=== PATIENT | male | born 1950 | race Caucasian/White ===

== ENCOUNTER 2020-08-08 09:59 | Emergency (ER) | payer OTHER, MEDICARE ==
[~2020-08-08] VITALS: Ht 172.7 cm; Wt 81.8 kg
[2020-08-08 10:42] LABS: BASOPHILS % (AUTO) 0.6 % (0-1); EOSINOPHILS # (AUTO) 0.1 X10'3 (0-0.9); EOSINOPHILS % (AUTO) 0.9 % (0-6); HEMATOCRIT 43.3 % (42.0-52.0); HEMOGLOBIN 14.7 g/dl (14.0-17.9); LYMPHOCYTES # (AUTO) 1.1 X10'3 (1.1-4.8); LYMPHOCYTES % (AUTO) 14.8 % (21-51); MEAN CORPUSCULAR HEMOGLOBIN 32.6 PG (27.0-31.0); MEAN PLATELET VOLUME 8.4 FL (7.4-10.4); MONOCYTES # (AUTO) 0.4 X10'3 (0-0.9); NEUTROPHILS # (AUTO) 5.7 X10'3 (1.8-7.7); NEUTROPHILS % (AUTO) 78.7 % (42-75); PLATELET COUNT 179 X10'3 (140-440); RED BLOOD COUNT 4.51 X10'6 (4.70-6.10); RED CELL DISTRIBUTION WIDTH 12.9 % (11.5-14.5); WHITE BLOOD COUNT 7.2 X10'3 (4.5-11.0)
[2020-08-08 10:56] LABS: ALANINE AMINOTRANSFERASE 39 U/L (12-78); ALBUMIN 3.8 G/DL (3.4-5.0); ALBUMIN/GLOBULIN RATIO 0.9 (1.1-1.5); ALKALINE PHOSPHATASE 68 IU/L (46-116); ANION GAP 9 (8-16); BILIRUBIN,TOTAL 0.5 MG/DL (0.1-1.0); BLOOD UREA NITROGEN 25 MG/DL (7-18); BUN/CREATININE RATIO 17.7 (5.4-32.0); CHLORIDE 103 MMOL/L (99-107); CREATININE 1.41 MG/DL (0.60-1.10); GLUCOSE 204 MG/DL (70-104); POTASSIUM 4.6 MMOL/L (3.5-5.1); SODIUM 138 MMOL/L (135-145); TOTAL CARBON DIOXIDE 26.5 MMOL/L (24-32); eGFR 49 ML/MIN
[2020-08-08 11:09] LABS: ASPARTATE AMINO TRANSFERASE 33 U/L (10-37)
[2020-08-08] MEDS ORDERED: meclizine 12.5mg tablet PO ONE (11:30)
[2020-08-08] MEDS ORDERED: MECL-159 PO (11:45)
[2020-08-08 12:34] VITALS: BP 140/73
== END 2020-08-08 12:37 | disposition home or self-care (01) ==
LOC: ER 10:00
DX: R42 Dizziness and giddiness (principal); R11.0 Nausea; J20.9 Acute bronchitis, unspecified; Z79.899 Other long term (current) drug therapy
CPT/HCPCS: 36415; 70450; 71045; 80053; 83880; 84484; 85025; 93005; 99285; J8597

== ENCOUNTER 2024-12-25 22:43 | Emergency (ER) | payer OTHER, MEDICARE ==
[~2024-12-25] VITALS: Ht 170.2 cm; Wt 60.2 kg
[~2024-12-25 22:43] MED LIST: MECL-302 PO
[2024-12-25 22:58] VITALS: BP 139/87; PULSE 66; RESP 15; TEMP 98.6; O2SAT 99
[2024-12-25] MEDS: fluorescein sod 1mg ophthalmic strip EACHEYE ONE (23:15)
[2024-12-25] MEDS: proparacaine 0.5% ophthalmic drops 15ml EACHEYE ONE (23:15)
--- NOTE | 2024-12-25 23:55 | Physician Documentation ---
History of Present Illness ~ Chief Complaint: Eye Pain Stated Complaint: EYE PAIN Time Seen by MD: 23:53 HPI Patient is a 74-year-old gentleman that presents to the emergency department for evaluation of right eye pain. He reports that he was in the shower earlier this evening when he squatted conditioner in his eye accidentally. Patient reports using the stream from the shower head to rinse his eye out. Patient reports that since that time his eye has been very irritated and difficult to open. Medication Reconciliation Allergies: Coded Allergies: No Known Allergies (Unverified , 08/08/20) Scheduled Meclizine HCl (Meclizine HCl), 1 TAB PO QID Past Medical History Past Medical History: Diabetes Past Surgical History: noncontributory Alcohol Use: None Lives In: Home Review of Systems ROS As stated above in the HPI, otherwise all systems are reviewed and negative. Physical Exam Vital Signs: Temperature: 98.6, Source: Temporal, Heart Rate: 66, Respiratory Rate: 15, BP: 139/87, Pulse Oximetry: 99, Weight: 60.200 Physical Exam VITALS: Reviewed and as above. GENERAL: Alert, no apparent distress. HEENT: Normocephalic, atraumatic, PERRL, EOMI, dry mucosa, no erythema, pain with exam, Wood's lamp evaluation with fluorescein strip shows probable corneal abrasion. RESPIRATORY: Lungs clear, normal breath sounds, no respiratory distress. CHEST: No accessory muscle use, no retractions CV: Regular rate, rhythm, no edema, no murmur, No: JVD GI: Soft, non-tender, bowels sounds present, no rebound, guarding, or rigidity BACK: No CVA tenderness, or swelling MUSCULOSKELETAL No deformities, no edema SKIN: Warm and dry, no rash NEURO: Oriented x4, No motor or sensory deficit PSYCH: Normal mood and affect, no agitation Progress Results/Orders Results/Orders Completed Orders - JUAN JARRETT Fluorescein 1mg Ophthal Strip (Ful-Nani O (12/25/24 23:15) Proparacaine Ophth Solution (Alcaine Oph (12/25/24 23:15) Vital Signs 12/25/24 22:58 Temp 98.6 Pulse 66 Resp 15 B/P (MAP) 139/87 Pulse Ox 99 Medical Decision Making Findings The Pt presents with pain likely due to a corneal abrasion seen on fluorescein staining of eye. The Pt is otherwise well-appearing without evidence of retained foreign body, corneal ulcer, globe rupture, or superimposed infection. Prescribed antibiotics and instructed the Pt to follow up closely with ophthalmology and avoid wearing contacts. We will follow up with primary care provider. Return to the emergency department with any worsening of his current symptoms or any additional concerning symptoms that we discussed here today i.e. increased pain in the eye increased drainage purulent drainage fevers decreased vision or any other concerning symptoms. Follow up with her sewing machinist 1st thing Friday. We have presc ribed ophthalmic antibiotic ointment for you today please use as prescribed. Tylenol ibuprofen as needed for discomfort. Eye Diff. Dx: Considerations: Include: [place]az[place], Conjuctivits-allergic, Conjuctivitis-bacterial, Conjuctivits-chlamydial, Conjuctivitis-viral, Corneal abrasion, Corneal laceration, Corneal ulceration, Foreign body-conjuctiva, Foreign body-corneal, Foreign body-intraocular, Foreign body-lid, Glaucoma, Globe rupture, Hordeolum, Iritis, Orbital cellulitis, Periobital cellulitis, Retinal artery occulsion, Retinal vein occlusion, Rust ring, Subconjunctival hem, Ultraviolet keratitis, Uveitis, Vitreous hemorrhage, Other Departure Disposition: 01 HOME / SELF CARE / HOMELESS Impression: Primary Impression: Corneal abrasion Condition: Stable Discharge Instructions: Corneal Abrasion Additional Instructions: The Pt presents with pain likely due to a corneal abrasion seen on fluorescein staining of eye. The Pt is otherwise well-appearing without evidence of retained foreign body, corneal ulcer, globe rupture, or superimposed infection. Prescribed antibiotics and instructed the Pt to follow up closely with ophthalmology and avoid wearing contacts. We will follow up with primary care provider. Return to the emergency department with any worsening of his current symptoms or any additional concerning symptoms that we discussed here today i.e. increased pain in the eye increased drainage purulent drainage fevers decreased vision or any other concerning symptoms. Follow up with her sewing machinist thing Friday. We have prescribed ophthalmic antibiotic ointment for you today please use as prescribed. Tylenol ibuprofen as needed for discomfort. Referrals: NO PRIMARY CARE PROVIDER (PCP) Prescriptions Polymyxin B Sulfate/Tmp Opth* (Polytrim Ophthalmic Drops*) 10 Ml Bottle 1 DRP EACHEYE Q4H for 7 Days, #42 EACH Prov: KOLBY,JUAN A MATE FIRST 12/26/24 Education Educated: Patient Educated regarding: diagnosis, treatment, need for follow up Signature Scribe Signature: A Attestation: Scribed for Juan Jarrett by HORACE Brady . 12/26/24 00:13 JUAN JARRETT Dec 25, 2024 23:55
[2024-12-26] MEDS ORDERED: POLOS EACHEYE (00:13)
== END 2024-12-26 00:27 | disposition home or self-care (01) ==
LOC: ER 22:43
DX: S05.01XA Injury of conjunctiva and corneal abrasion without foreign body, right eye, initial encounter (principal); E11.9 Type 2 diabetes mellitus without complications; X58.XXXA Exposure to other specified factors, initial encounter; Y93.89 Activity, other specified; Y92.89 Other specified places as the place of occurrence of the external cause; Y99.8 Other external cause status
CPT/HCPCS: 99283